=== PATIENT | male | born 1950 | race Caucasian/White ===

== ENCOUNTER 2025-06-07 16:22 | Emergency (ER) | payer OTHER, SELFPAY ==
[2025-06-07 16:23] VITALS: BMI 29.0
[2025-06-07 17:05] VITALS: BP 146/73; PULSE 82; RESP 17; TEMP 36.4; O2SAT 96
--- NOTE | 2025-06-07 17:10 | PD.EDALLER ---
ED Allergic Reaction RME/HPI General Chief complaint: Hand/Wrist Problems Stated complaint: STUNG BY YELLOWJACK TO LEFT HAND Time Seen by Provider: 06/07/25 16:26 Arrival date/time: 06/07/25 16:22 RME / HPI RME / HPI narrative: DR. PARTIDA MAIN ED EVALUATION: 74-year-old male accompanied by his presents with concern for allergic reaction after being stung by a Yellowjacket approximately 4 hours ago. He reports swelling and pain in the left hand, along with a rash on the left forearm. Symptoms began shortly after the sting occurred while he was doing yardwork. He denies systemic symptoms such as shortness of breath or dizziness. He recalls having similar symptoms last year. Past medical history includes right eye cataract surgery performed by Dr. Forbes on 12/26/2023. Related Data Previous Rx's ?Medication ?Instructions ?Recorded diphenhydramine HCl 25 mg capsule 50 mg (2 x 25 mg) PO Q6H PRN 06/07/25 (Benadryl) allergic reaction #14 caps Allergies Allergy/AdvReac Type Severity Reaction Status Date / Time No Known Allergies Allergy Verified 06/07/25 16:23 Review of Systems Review of Systems Systems Reviewed: All systems reviewed, normal except as documented Past Medical History Past Medical History ENT: Positive Cataracts (left) OTHER HISTORY: Positive Hospitalization (surgery) and Cancer (prostate cancer treated w/radiation only 2007) Social History SMOKING STATUS: Never smoker SUBSTANCE USE: does not use ALCOHOL: Never ED Exam Narrative Physical exam: Constitutional: Awake, alert, nontoxic, no acute distress HEENT: NC, AT, EOMI Neck: Supple CV: Regular rate and rhythm, no murmurs. Lungs: Clear to auscultation bilaterally, no respiratory distress. Extremities: Swelling and erythema of the left hand extending from the metacarpals to the left wrist. There is also some erythema extending to the left forearm. Neuro: AAOx3, no acute neuro deficit noted. Skin: Warm, dry, intact Course Course Course Narrative: Patient with localized allergic reaction to hornet sting. Given dose of Solu-Medrol, Benadryl, Pepcid here and will advise on Benadryl every 6 hours as needed for home. Stable for discharge. To return if worse. Quality Measures none Orders Category Date Time Status DiphenhydrAMINE [Benadryl] Med 06/07/25 17:04 Discontinued 50 mg PO X1 ONE Famotidine [Pepcid] Med 06/07/25 17:04 Discontinued 40 mg PO X1 ONE MethylPREDNISolone.* [SoluMEDROL Inj] Med 06/07/25 17:04 Discontinued 125 mg IM X1 ONE Vital Signs Vital signs: Vital Signs Temperature 97.6 F 06/07/25 17:05 Pulse Rate 82 06/07/25 17:05 Respiratory Rate 17 06/07/25 17:05 Blood Pressure 146/73 H 06/07/25 17:05 Pulse Oximetry (%) 96 06/07/25 17:05 Oxygen Delivery Method Room Air 06/07/25 17:05 Allergic Reaction MDM Narrative MDM Narrative:: IJenn am scribing for and in the presence of Dr. Partida. Patient data External records reviewed:: [facility] previous records Clinical information provided by:: patient Social determinants that could affect healthcare access:: none Patient has the following chronic illnesses:: Past medical history includes right eye cataract surgery performed by Dr. Forbes on 12/26/2023. How is presenting disease/condition affected by chronic disease/condition?: uneffected by Evaluation data The following diagnostics were reviewed and interpreted by me:: other (specify) (none) Lab and/or radiology exams considered but not ordered:: none Interpretation Summary: n/a Medications / Prescriptions Medications or Prescriptions considered but not ordered:: none Medication administrations:: Medication Administration History Discontinued Medications Diphenhydramine HCl (Diphenhydramine 25 Mg Capsule) 50 mg PO X1 ONE Stop: 06/07/25 17:05 Last Admin: 06/07/25 17:49 Dose: 50 mg Documented By: OA Famotidine (Famotidine 20 Mg Tablet) 40 mg PO X1 ONE Stop: 06/07/25 17:05 Last Admin: 06/07/25 17:49 Dose: 40 mg Documented By: OA Methylprednisolone Sodium Succinate (Methylprednisolone Sod Succ 62.5 Mg/Ml 2ml Vial) 125 mg IM X1 ONE Stop: 06/07/25 17:05 Last Admin: 06/07/25 17:50 Dose: 125 mg Documented By: OA see above Consultations Consultation(s) initiated? (list below): No Diagnosis Differential Diagnosis allergic reaction: other (Allergic reaction to insect sting, localized cellulitis, and contact dermatitis.) Most likely diagnosis given after review of the tests above:: Hornet sting Allergic reaction Admission Indicated Admission indicated?: not indicated Admission Request Was there a request for admission?: No Disposition Plan Disposition Plan: Discharge Discharge Attestation Discharge Attestation: The patient and all family members were given an opportunity to ask questions and understood the discharge instructions. Discharge instructions specifically effects, indications for sooner follow up or return to the emergency department, and the expected course of current diagnosis. Patient condition: Stable Discharge Plan Plan Patient Disposition: HOME (Self Care) Patient condition on transfer: Stable Prescriptions/Referrals Prescriptions/Med Rec: New diphenhydramine HCl [Benadryl] 25 mg capsule 50 mg PO Q6H PRN (Reason: allergic reaction) Qty: 14 0RF Problem List Clinical Impression: Hornet sting, Allergic reaction Patient/Caregiver Discharge Instructions Education Materials: First Aid: Poisoning, ED Bite Sting Insect Gen Allergic React Print Language: Persian Stand Alone Forms: Marlin Award Info., Patient Portal Info Letter
[2025-06-07] MEDS: FAMOTIDINE 20 MG TABLET 40 MG PO (17:49)
[2025-06-07] MEDS: MethylPREDNISolone SOD SUCC 62.5 MG/ML 2ML VIAL 125 MG IM (17:50)
== END 2025-06-07 18:51 | disposition home or self-care (01) ==
LOC: SERX 18:22
PROVIDERS: Emergency Provider Family Medicine
DX: T63.441A Toxic effect of venom of bees, accidental (unintentional), initial encounter (principal); T78.40XA Allergy, unspecified, initial encounter
CPT/HCPCS: 96372; 99283; J2919; A9270